=== PATIENT | female | born 1935 | race Caucasian/White ===

== ENCOUNTER 2018-03-14 15:40 | Inpatient (IN) | payer MEDICARE ==
[~2018-03-14] VITALS: Ht 167.6 cm; Wt 57.9 kg
[2018-03-14] MEDS ORDERED: OLME40TA12 PO (16:20)
[2018-03-14 16:21] LABS: BASOPHILS # (AUTO) 0.03 x10^3/uL (0-0.1); BASOPHILS % (AUTO) 0 % (0-1); EOSINOPHILS # (AUTO) 0.09 x10^3/uL (0-0.4); EOSINOPHILS % (AUTO) 1 % (1-7); LYMPHOCYTES % (AUTO) 27 % (22-44); MD NO; MEAN CORPUSCULAR HEMOGLOBIN 33.3 pg (27.0-34.8); MEAN CORPUSCULAR HGB CONC 33.3 g/dL (32.4-35.8); MEAN CORPUSCULAR VOLUME 99.8 fL (80-100); MEAN PLATELET VOLUME 7.7 fL (7.4-10.4); MONOCYTES # (AUTO) 0.77 x10^3/uL (0.2-0.8); MONOCYTES % (AUTO) 11 % (2-9); NEUTROPHILS # (AUTO) 4.44 x10^3/uL (1.8-6.8); NEUTROPHILS % (AUTO) 61 % (42-75); PLATELET COUNT 166 x10^3/uL (130-400); RED BLOOD COUNT 4.08 x10^6/uL (3.82-5.3); RED CELL DISTRIBUTION WIDTH 12.6 % (9.6-15.2)
[2018-03-14] MEDS ORDERED: METO25TA35 PO (16:21)
[2018-03-14] MEDS ORDERED: AMLO5TAB2 PO (16:21)
[2018-03-14] MEDS ORDERED: LITH300C PO (16:22)
[2018-03-14] MEDS ORDERED: PARO10TA3 PO (16:23)
[2018-03-14] MEDS ORDERED: TRAM50TA2 PO (16:29)
[2018-03-14] MEDS ORDERED: TRAZ50TA18 PO (16:29)
[2018-03-14] MEDS ORDERED: OMEP-110 PO (16:30)
[2018-03-14 16:31] LABS: ALBUMIN 3.4 g/dL (3.4-5.0); ANION GAP 6 mmol/L (5-15); CALCIUM 8.6 mg/dL (8.5-10.1); CHLORIDE 119 mmol/L (98-107); CREATININE 0.85 mg/dL (0.55-1.02)
[2018-03-14] MEDS ORDERED: [UNRECOGNIZED DRUG - CODE] PO (16:31)
[2018-03-14] MEDS ORDERED: MULT-326 PO (16:31)
[2018-03-14] MEDS ORDERED: CALC-183 PO (16:32)
[2018-03-14 16:41] LABS: FREE T4 (FREE THYROXINE) 1.36 ng/dL (0.76-1.46); THYROID STIMULATING HORMONE 0.995 mIU/L (0.358-3.740)
[2018-03-14] MEDS ORDERED: SODIUM CHLORIDE FLUSH 10ML SYR IVF PRN (17:30)
[2018-03-14] MEDS ORDERED: ONDANSETRON 2MG/ML, 2ML IVPush PRN (18:00)
[2018-03-14] MEDS ORDERED: ONDANSETRON ODT 4 MG PO PRN (18:00)
[2018-03-14] MEDS ORDERED: ENALAPRILAT 1.25 MG/ML, 2ML IVPush PRN (18:00)
[2018-03-14] MEDS ORDERED: LACTASE 9,000 UNITS TABLET PO PRN (18:00)
[2018-03-14 18:10] LABS: TROPONIN I < 0.015 ng/mL (0.000-0.045)
[2018-03-14 21:44] VITALS: BP 170/76
[2018-03-14] MEDS: LITHIUM CARBONATE 300 MG CAPSULE PO SCH (21:59)
[2018-03-14] MEDS: TRAZODONE 50MG TABLET PO SCH (21:59)
[2018-03-14] MEDS: HEPARIN 5,000 UNITS/ML, 1ML SQ SCH (21:59)
[2018-03-14] MEDS: SODIUM CHLORIDE 0.9% 1,000 ML IV SCH (22:00)
[2018-03-15 04:26] VITALS: BP 144/61
[2018-03-15 05:17] LABS: CHLORIDE 121 mmol/L (98-107)
[2018-03-15 05:20] LABS: BASOPHILS # (AUTO) 0.03 x10^3/uL (0-0.1); BASOPHILS % (AUTO) 1 % (0-1); EOSINOPHILS # (AUTO) 0.09 x10^3/uL (0-0.4); EOSINOPHILS % (AUTO) 1 % (1-7); LYMPHOCYTES # (AUTO) 1.64 x10^3/uL (1-3.4); LYMPHOCYTES % (AUTO) 27 % (22-44); MD NO; MEAN CORPUSCULAR HEMOGLOBIN 33.2 pg (27.0-34.8); MEAN CORPUSCULAR HGB CONC 33.3 g/dL (32.4-35.8); MEAN CORPUSCULAR VOLUME 99.8 fL (80-100); MEAN PLATELET VOLUME 8.2 fL (7.4-10.4); MONOCYTES # (AUTO) 0.66 x10^3/uL (0.2-0.8); MONOCYTES % (AUTO) 11 % (2-9); NEUTROPHILS % (AUTO) 60 % (42-75); PLATELET COUNT 135 x10^3/uL (130-400); RED BLOOD COUNT 3.59 x10^6/uL (3.82-5.3); RED CELL DISTRIBUTION WIDTH 12.9 % (9.6-15.2)
[2018-03-15 05:23] LABS: ALANINE AMINOTRANSFERASE 17 U/L (12-78); ALBUMIN 2.9 g/dL (3.4-5.0); ALKALINE PHOSPHATASE 57 U/L (45-117); BILIRUBIN,TOTAL 0.4 mg/dL (0.2-1.0); CALCIUM 8.4 mg/dL (8.5-10.1); TOTAL PROTEIN 5.4 g/dL (6.4-8.2)
[2018-03-15 05:33] LABS: ANION GAP 7 mmol/L (5-15)
[2018-03-15] MEDS: HEPARIN 5,000 UNITS/ML, 1ML SQ SCH (05:34)
[2018-03-15 06:54] VITALS: BP 162/49
[2018-03-15] MEDS: AMLODIPINE 5 MG TABLET PO SCH (08:33)
[2018-03-15] MEDS: CALCIUM/VITAMIN D3 250-125 TABLET PO SCH (08:33)
[2018-03-15] MEDS: LOSARTAN 50MG TABLET PO SCH (08:33)
[2018-03-15] MEDS: SODIUM CHLORIDE 0.9% 1,000 ML IV SCH ×3 (08:34→23:24)
[2018-03-15] MEDS ORDERED: PAROXETINE 20 MG TABLET ONE (08:38)
[2018-03-15] MEDS: LITHIUM CARBONATE 300 MG CAPSULE PO SCH ×2 (08:40→20:09)
[2018-03-15] MEDS: OMEPRAZOLE 20 MG CAPSULE.DR PO SCH (08:40)
[2018-03-15] MEDS: MULTIVITAMIN 1 TABLET PO SCH (08:42)
[2018-03-15] MEDS: PAROXETINE 10 MG TABLET PO SCH (08:42)
[2018-03-15] MEDS ORDERED: FENTANYL PF 100 MCG/2ML ONE (10:44)
[2018-03-15] MEDS ORDERED: CEFAZOLIN PMX 1GM/50ML 50 ML ONE (10:44)
[2018-03-15] MEDS ORDERED: CEFAZOLIN 1,000 MG ONE (10:44)
[2018-03-15] MEDS ORDERED: MIDAZOLAM 1 MG/ML, 2ML ONE (10:44)
[2018-03-15] MEDS ORDERED: LIDOCAINE/PF 1%, 30ML ONE (10:44)
[2018-03-15] MEDS ORDERED: ONDANSETRON 2MG/ML, 2ML ONE (10:53)
[2018-03-15] MEDS ORDERED: SODIUM CHLORIDE 0.9% 1,000 ML IV SCH (11:00)
[2018-03-15] MEDS ORDERED: POTASSIUM CHLORIDE 40 MEQ in SODIUM CHLORIDE 0.9% 500 ML IV ONE (12:00)
[2018-03-15] MEDS ORDERED: HOLD MEDICATION MC PRN (12:00)
[2018-03-15 15:21] VITALS: BP 147/70
[2018-03-15] MEDS: ACETAMINOPHEN 325 MG TABLET PO PRN (17:15)
[2018-03-15 18:43] VITALS: BP 143/66
[2018-03-15] MEDS: CEFAZOLIN PMX 1GM/50ML 50 ML IVPB SCH (19:32)
[2018-03-15] MEDS: TRAZODONE 50MG TABLET PO SCH (20:09)
[2018-03-15] MEDS: SODIUM CHLORIDE FLUSH 10ML SYR IVF SCH (20:09)
[2018-03-16 02:38] VITALS: BP 157/71
[2018-03-16] MEDS: CEFAZOLIN PMX 1GM/50ML 50 ML IVPB SCH ×2 (03:13→11:28)
[2018-03-16 06:35] VITALS: BP 165/69
[2018-03-16] MEDS: SODIUM CHLORIDE FLUSH 10ML SYR IVF SCH (09:00)
[2018-03-16] MEDS: PAROXETINE 10 MG TABLET PO SCH (09:00)
[2018-03-16] MEDS: MULTIVITAMIN 1 TABLET PO SCH (09:00)
[2018-03-16] MEDS: OMEPRAZOLE 20 MG CAPSULE.DR PO SCH (09:23)
[2018-03-16] MEDS: CALCIUM/VITAMIN D3 250-125 TABLET PO SCH (09:23)
[2018-03-16] MEDS: AMLODIPINE 5 MG TABLET PO SCH (09:24)
[2018-03-16] MEDS: LITHIUM CARBONATE 300 MG CAPSULE PO SCH (09:24)
[2018-03-16] MEDS: LOSARTAN 50MG TABLET PO SCH (09:24)
[2018-03-16] MEDS ORDERED: PAROXETINE 20 MG TABLET ONE (09:25)
[2018-03-16] MEDS: SODIUM CHLORIDE 0.9% 1,000 ML IV SCH (09:57)
[2018-03-16] MEDS: ACETAMINOPHEN 325 MG TABLET PO PRN (11:28)
== END 2018-03-16 13:50 | disposition home or self-care (01) | DRG 242 ==
LOC: ED 17:29 → EDIP 17:30 → ED 17:33 → 5SO 21:03
PROVIDERS: ADMIT Hospitalist; ATTEND Hospitalist
PROC: 0JH606Z Insertion of Pacemaker, Dual Chamber into Chest Subcutaneous Tissue and Fascia, Open Approach (ICD-10-PCS; principal; 2018-03-15)
PROC: 02H63JZ Insertion of Pacemaker Lead into Right Atrium, Percutaneous Approach (ICD-10-PCS; 2018-03-15)
PROC: 02HK3JZ Insertion of Pacemaker Lead into Right Ventricle, Percutaneous Approach (ICD-10-PCS; 2018-03-15)
DX: I44.1 Atrioventricular block, second degree (principal); E43 Unspecified severe protein-calorie malnutrition; E87.0 Hyperosmolality and hypernatremia; E03.9 Hypothyroidism, unspecified; E73.9 Lactose intolerance, unspecified; E87.8 Other disorders of electrolyte and fluid balance, not elsewhere classified; F32.9 Major depressive disorder, single episode, unspecified; I10 Essential (primary) hypertension; Z96.651 Presence of right artificial knee joint; I44.7 Left bundle-branch block, unspecified; K21.9 Gastro-esophageal reflux disease without esophagitis; Z66 Do not resuscitate; R00.1 Bradycardia, unspecified; Z87.891 Personal history of nicotine dependence; Z90.710 Acquired absence of both cervix and uterus; Z90.49 Acquired absence of other specified parts of digestive tract; Z68.20 Body mass index [BMI] 20.0-20.9, adult; Z86.19 Personal history of other infectious and parasitic diseases; Z88.8 Allergy status to other drugs, medicaments and biological substances; Z88.5 Allergy status to narcotic agent
CPT/HCPCS: 33208; 36415; 71045; 80048; 80053; 80178; 82040; 83735; 84100; 84439; 84443; 84484; 85025; 93005; 93306; 99156; 99157; 99285; C1779; C1785; C1892; J0690; J1644; J2250; J2405; J3010; J3480; J3490; J7030; J7040